=== PATIENT | male | born 1970 | race Caucasian/White ===

== ENCOUNTER 2022-03-10 20:00 | Outpatient (CLI) | payer BC, SELFPAY ==
--- NOTE | 2022-03-16 12:23 | W.PM.SLEEP ---
Sleep Study Details Details Interpreting Provider: Hal Londono MD Date of Sleep Study: 03/10/22 Sleep Study Details: STUDY TYPE:? Home ? BMI:? 33.2 ORDERING PROVIDER:? Reji INDICATION:? Concerns about sleep apnea ? SLEEP SUMMARY:? 455.5 monitored minutes RESPIRATORY SUMMARY:? AHI 15.1, supine AHI 47.8, prone 7, left lateral 4.6, right lateral 7.6 Low oxygen 85 3.5% of study oxygen less than 90% Snoring% 0.2 PERIODIC LIMB MOVEMENTS OF SLEEP:? Not recorded CARDIAC:? 48-79, mean 57.2 IMPRESSION:? Moderate obstructive sleep apnea with significant supine position dependency RECOMMENDATION: AutoSet CPAP at a pressure of 4-17.
== END 2022-03-10 20:01 | disposition home or self-care (01) ==
LOC: SLEEP 03-16 11:27
PROVIDERS: Visit Provider Otolaryngology
DX: G47.33 Obstructive sleep apnea (adult) (pediatric) (principal)
CPT/HCPCS: 95806